=== PATIENT | male | born 1990 | race Caucasian/White ===

== ENCOUNTER 2019-04-01 13:55 | Emergency (ER) | payer MEDICAID, OTHER ==
[~2019-04-01] VITALS: Ht 180.3 cm; Wt 109.1 kg
[~2019-04-01 13:55] MED LIST: CYCL-394 PO; GUAI600T45 PO; NAPR-232 PO; NORCO10T PO; PSEU-259 PO; [UNRECOGNIZED DRUG - CODE] PO
[2019-04-01] MEDS ORDERED: normal saline 1000ML IV soln IVB STA (14:08)
[2019-04-01] MEDS ORDERED: diphenhydrAMINE 50 mg/ml inj IV ONE (14:10)
[2019-04-01] MEDS ORDERED: epiNEPHrine 1 mg/ml inj SQ ONE (14:10)
[2019-04-01] MEDS ORDERED: famotidine/PF 10 mg/ml inj IV ONE (14:10)
[2019-04-01] MEDS ORDERED: methylPREDNISolone sod succ 125mg/2ml vial IV ONE (14:10)
[2019-04-01] MEDS ORDERED: epiNEPHrine 1 mg/ml inj IM STA (14:35)
--- NOTE | 2019-04-01 15:08 | NUR ---
Pt resting in bed. Wakes easily. Reports that he thinks swelling has decreased.
[2019-04-01] MEDS ORDERED: PRED10TA PO (17:36)
[2019-04-01] MEDS ORDERED: EPIN0.3P3 IM (17:38)
[2019-04-01 17:47] VITALS: BP 162/89
== END 2019-04-01 17:49 | disposition home or self-care (01) ==
LOC: ER 13:55
DX: T63.441A Toxic effect of venom of bees, accidental (unintentional), initial encounter (principal); F12.90 Cannabis use, unspecified, uncomplicated; Z56.0 Unemployment, unspecified; Z91.030 Bee allergy status; Z79.899 Other long term (current) drug therapy; Y92.89 Other specified places as the place of occurrence of the external cause
CPT/HCPCS: 96372; 96374; 96375; 99283; J0171; J1200; J2930; J3490; J7030

== ENCOUNTER 2019-04-03 21:29 | Emergency (ER) | payer SELFPAY ==
[~2019-04-03] VITALS: Ht 182.9 cm; Wt 95.0 kg
[~2019-04-03 21:29] MED LIST changes: +EPIN0.3P3 IM; +PRED10TA PO
[2019-04-03 21:40] VITALS: BP 166/102
[2019-04-03] MEDS ORDERED: CLIN150C2 PO (22:29)
--- NOTE | 2019-04-03 23:06 | NUR ---
pt seen and dc'd by provider
== END 2019-04-03 23:00 | disposition home or self-care (01) ==
LOC: ER 21:29
DX: K08.89 Other specified disorders of teeth and supporting structures (principal); R22.0 Localized swelling, mass and lump, head; F12.90 Cannabis use, unspecified, uncomplicated; Z56.0 Unemployment, unspecified; Z91.030 Bee allergy status; Z79.899 Other long term (current) drug therapy
CPT/HCPCS: 99283

== ENCOUNTER 2021-06-24 18:11 | Emergency (ER) | payer OTHER ==
[~2021-06-24] VITALS: Ht 182.9 cm; Wt 127.3 kg
[2021-06-24 18:23] VITALS: BP 158/109
== END 2021-06-25 03:43 | disposition left against medical advice (07) ==
LOC: ER 18:12
DX: M25.521 Pain in right elbow (principal); Z53.21 Procedure and treatment not carried out due to patient leaving prior to being seen by health care provider

== ENCOUNTER 2022-08-12 20:29 | Emergency (ER) | payer MEDICAID, OTHER ==
[~2022-08-12] VITALS: Ht 182.9 cm; Wt 104.5 kg
[2022-08-12] MEDS ORDERED: TAM75C PO (22:20)
[2022-08-12] MEDS ORDERED: oseltamivir phos 75mg capsule PO ONE (22:20)
[2022-08-12] MEDS ORDERED: ibuprofen tablet 400 MG TABLET PO ONE (22:25)
[2022-08-12] MEDS ORDERED: acetaminophen 325mg tablet PO ONE (22:25)
[2022-08-12 23:39] VITALS: BP 165/92
== END 2022-08-12 23:41 | disposition home or self-care (01) ==
LOC: ER 20:30
DX: J10.1 Influenza due to other identified influenza virus with other respiratory manifestations (principal); Z20.822 Contact with and (suspected) exposure to COVID-19; Z88.8 Allergy status to other drugs, medicaments and biological substances; Z56.0 Unemployment, unspecified
CPT/HCPCS: 87502; 87503; 87635; 99284; C9803

== ENCOUNTER 2023-03-01 09:06 | Emergency (ER) | payer SELFPAY ==
[~2023-03-01] VITALS: Ht 185.4 cm; Wt 115.0 kg
[2023-03-01 09:08] VITALS: BP 170/124
[2023-03-01] MEDS ORDERED: traMADol 50MG tablet PO ONE (10:35)
--- NOTE | 2023-03-01 10:55 | NUR ---
TELERAD CALLED REGARDING XRAY REPORT.
== END 2023-03-01 11:24 | disposition home or self-care (01) ==
LOC: ER 09:07
DX: S93.401A Sprain of unspecified ligament of right ankle, initial encounter (principal); F12.90 Cannabis use, unspecified, uncomplicated; Z56.0 Unemployment, unspecified; Z91.030 Bee allergy status; Z79.899 Other long term (current) drug therapy; X58.XXXA Exposure to other specified factors, initial encounter; Y93.89 Activity, other specified; Y92.89 Other specified places as the place of occurrence of the external cause; Y99.8 Other external cause status
CPT/HCPCS: 73610; 99283; L4360

== ENCOUNTER 2023-03-20 18:51 | Emergency (ER) | payer MEDICAID ==
[~2023-03-20] VITALS: Ht 182.9 cm; Wt 104.5 kg
[2023-03-20 19:02] VITALS: BP 216/140; PULSE 110; TEMP 98.7; O2SAT 98
[2023-03-20] MEDS ORDERED: ketorolac tromethamine 15mg/ml inj. IM ONE (22:30)
[2023-03-20] MEDS ORDERED: NAPR-56 PO (22:32)
[2023-03-20 22:38] VITALS: RESP 18
== END 2023-03-20 22:57 | disposition home or self-care (01) ==
LOC: ER 18:52
DX: M25.571 Pain in right ankle and joints of right foot (principal); R22.41 Localized swelling, mass and lump, right lower limb; F12.90 Cannabis use, unspecified, uncomplicated; Z56.0 Unemployment, unspecified; Z91.030 Bee allergy status; Z79.899 Other long term (current) drug therapy
CPT/HCPCS: 73610; 96372; 99283; J1885

== ENCOUNTER 2024-03-30 21:02 | Emergency (ER) | payer MEDICAID ==
[~2024-03-30] VITALS: Ht 182.9 cm; Wt 127.3 kg
[2024-03-30 21:11] VITALS: BP 175/124; PULSE 98; RESP 17; TEMP 98.7; O2SAT 95
[2024-03-30] MEDS ORDERED: CEPH-585 PO (22:13)
== END 2024-03-30 22:20 | disposition home or self-care (01) ==
LOC: ER 21:03
DX: S50.01XA Contusion of right elbow, initial encounter (principal); L03.113 Cellulitis of right upper limb; F12.90 Cannabis use, unspecified, uncomplicated; Z91.030 Bee allergy status; Z79.2 Long term (current) use of antibiotics; Z79.899 Other long term (current) drug therapy; Z79.1 Long term (current) use of non-steroidal anti-inflammatories (NSAID); X58.XXXA Exposure to other specified factors, initial encounter; Y93.89 Activity, other specified; Y92.89 Other specified places as the place of occurrence of the external cause; Y99.8 Other external cause status
CPT/HCPCS: 73080; 99283